=== PATIENT | female | born 1985 | race Caucasian/White ===

== ENCOUNTER → 2018-06-01 | Outpatient (REF) | payer BC ==
[~2018-06-01] MED LIST: QUET50TA21 PO
[2018-06-01 18:18] LABS: PLATELET COUNT, AUTOMATED 192 K/uL (150-450)
== END ==
PROVIDERS: ATTEND Nurse Practitioner Family
DX: G47.00 Insomnia, unspecified (principal)
CPT/HCPCS: 82040; 82247; 82310; 82374; 82435; 82565; 82947; 84075; 84132; 84155; 84295; 84450; 84460; 84520; 85025

== ENCOUNTER 2018-06-02 05:52 | Emergency (ER) | payer BC ==
[2018-06-02 06:04] VITALS: BP 144/102
--- NOTE | 2018-06-02 06:12 | ER Report ---
History and Physical Time Seen By MD: 06:12 Hx. of Stated Complaint: MANIC EPISODE HPI/ROS CHIEF COMPLAINT: manic episode HISTORY OF PRESENT ILLNESS: This is a 32 year old female. She was brought to the ER by her under the guise that he needed to be seen, but in reality, he is worried about her. She is having a manic episode and he was hoping to get her some help. She has been becoming more and more animated every day, and has done this in the past. She has gotten to the point where she will become unresponsive, and has actually taken off and been difficult to find when this happens. He wants us to admit her, but she does not want to be here. She says she is fine, feels great and is looking forward to going to the [facility] in [place] today. She does not feel that she is having any problem and is not interested in staying or taking any medicine. She is not suicidal or homicidal. Allergies: Coded Allergies: No Known Drug Allergies (Unverified , 06/02/18) Home Meds Active Scripts Quetiapine Fumarate (SEROQUEL) 50 Mg Tablet, 50 MG PO BID, #60 TAB 0 Refills Prov:MATTIE RIVAS MD 06/02/18 Reviewed Nurses Notes: Yes Constitutional Vital Sign - Last 24 Hours 06/02/18 06:04 Temp 97.7 Pulse 91 Resp 18 B/P (MAP) 144/102 Pulse Ox 96 O2 Delivery Room Air Physical Exam General: Alert, very animated. Does appear to be hyper active and over talkative. Psych: no SI or HI. She does appear manic, but does not appear to be a danger to herself at this time. Neuro: Alert, and oriented. Medical Decision Making ED Course/Re-evaluation ED Course [place] after interviewing her, that she is manic, but because she is alert and oriented and not suicidal or homicidal, that there is nothing we can do at this time. Offered to start her on Seroquel 50mg bid and she had Hydroxyzine she can use. Her was not happy with us, but at this time there was nothing else we can do, she does not meet criteria for being dangerous to herself or others at this time. Decision to Disposition Date: Jun 02, 2018 Decision to Disposition Time: 06:22 Depart Departure Latest Vital Signs Vital Signs Date Time Temp Pulse Resp B/P (MAP) Pulse Ox O2 Delivery O2 Flow Rate FiO2 06/02/18 06:04 97.7 91 18 144/102 96 Room Air Impression: Primary Impression: Manic bipolar I disorder Condition: Condition Unchanged Disposition: HOME OR SELF-CARE Referrals: DALLAS KEBEDE DO (PCP) New Scripts Quetiapine Fumarate (SEROQUEL) 50 Mg Tablet 50 MG PO BID, #60 TAB 0 Refills Prov: MATTIE RIVAS MD 06/02/18 Patient Instructions: Bipolar Disorder (ED) Additional Instructions: You are having a manic episode and without intervention this will spiral out of control. We recommend following up with a primary care provider or mental health provider for further evaluation. You are always welcome to return to the hospital if you would like us to admit you for treatment. Keep taking the Hydroxyzine 50mg tablets at bedtime prescribed by urgent care. I will provide a prescription for Seroquel 50mg twice a day MATTIE RVIAS MD Jun 02, 2018 06:12
[2018-06-02] MEDS ORDERED: QUET50TA21 PO (06:27)
[2018-06-02] MEDS ORDERED: QUEtiapine FUM 100 MG TAB PO ONE (06:40)
[2018-06-02] MEDS ORDERED: QUEtiapine FUM 25 MG TAB ONE (06:58)
== END 2018-06-02 07:22 | disposition home or self-care (01) ==
LOC: ER 06:19
DX: F30.9 Manic episode, unspecified (principal)
CPT/HCPCS: 99281

== ENCOUNTER 2018-06-02 19:41 | Emergency (ER) | payer BC ==
[2018-06-02 19:50] VITALS: BP 127/94
--- NOTE | 2018-06-02 20:05 | ER Report ---
History and Physical Time Seen By MD: 20:04 HPI/ROS CHIEF COMPLAINT: Sore throat HISTORY OF PRESENT ILLNESS: This is a 32-year-old female. Her earlier today for manic episode. She is much calmer now. She is complaining of sore throat. Pain with swallowing. No fevers or chills. No cough. Denies any runny nose or shortness of breath with this. Allergies: Coded Allergies: No Known Drug Allergies (Unverified , 06/02/18) Home Meds Active Scripts Quetiapine Fumarate (SEROQUEL) 50 Mg Tablet, 50 MG PO BID, #60 TAB 0 Refills Prov:MATTIE RIVAS MD 06/02/18 Unable To Obtain Past Medical: Unable to Obtain/Update Reviewed Nurses Notes: Yes Constitutional Vital Sign - Last 24 Hours 06/02/18 06/02/18 06/02/18 19:49 19:50 19:56 Temp 98.9 Pulse 90 87 Resp 18 B/P (MAP) 127/94 (105) 127/94 Pulse Ox 93 97 O2 Delivery Room Air Physical Exam General Appearance: The patient is alert, has no immediate need for airway protection and no current signs of toxicity. Eyes: Pupils equal and round no injection. ENT: Normal oral mucosa. Moist mucous membranes. Posterior oropharynx is a little red, no exudates or hypertrophy. Tympanic membranes are normal. Neck: Neck is supple and non tender. No lymphadenopathy noted. Respiratory: Chest is non tender, lungs are clear to auscultation. Cardiac: regular rate and rhythm Gastrointestinal: Abdomen is soft and non tender, no masses, bowel sounds normal. Musculoskeletal: Extremities have full range of motion. Skin: No rashes or lesions. DIFFERENTIAL DIAGNOSIS: After history and physical exam differential diagnosis was considered for sore throat, likely viral pharyngitis we'll check strep as well. Medical Decision Making Data Points Laboratory Hematology Test 06/02/18 19:53 Group A Streptococcus Screen Negative (NEGATIVE) Chemistry Test 06/02/18 19:53 Group A Streptococcus Screen Negative (NEGATIVE) ED Course/Re-evaluation ED Course Negative strep. Reviewed findings for viral pharyngitis and associated treatment conservative Decision to Disposition Date: Jun 02, 2018 Decision to Disposition Time: 21:07 Depart Departure Latest Vital Signs Vital Signs Date Time Temp Pulse Resp B/P (MAP) Pulse Ox O2 Delivery O2 Flow Rate FiO2 06/02/18 19:56 87 97 06/02/18 19:50 98.9 18 127/94 Room Air Impression: Primary Impression: Viral pharyngitis Condition: Improved Disposition: HOME OR SELF-CARE Referrals: DALLAS KEBEDE DO (PCP) Patient Instructions: Pharyngitis (ED) Additional Instructions: Your sore throat looks like it is caused by a virus. Rest and increase fluid intake. you can use some sore throat lozenges or sprays as needed. Tylenol or Ibuprofen as needed for pain MATTIE RIVAS MD Jun 02, 2018 20:05
== END 2018-06-02 21:12 | disposition home or self-care (01) ==
LOC: ER 19:53
DX: J02.9 Acute pharyngitis, unspecified (principal)
CPT/HCPCS: 87081; 87880; 99282

== ENCOUNTER 2019-04-17 11:07 | Emergency (ER) | payer BC, OTHER ==
[2019-04-17] MEDS ORDERED: KETAMINE HCL 500 MG/5 ML VIAL IM ONE (11:30)
--- NOTE | 2019-04-17 11:48 | BHS - Psychiatric Evaluation ---
ER - Title 25 MHE Evaluation Title 25 Evaluation Patient Detained By: Physician Referral Source: and POA Date Patient Detained: Apr 17, 2019 Time Patient Detained: 11:50 Date Fpc Expires: Apr 22, 2019 Time Fpc Expires: 11:50 Legal Status: Police Hold: No Legal Status: Residence: [facility] Resident Assessment Data Provided By: Family Member(s) () HPI/ROS: Patient brought in for assessment by who feels that she is having an acute manic episode that began this Monday. Admit due to SI or Attempt: Yes Suicide Plan: Has Plan w/out Access Current Suicide Plan Unknown, but states that she said she "was going to jkill herself last evening"; currently the patient is rambling "I don't know" with or without questioning Alcohol or Drugs Involved: No Is Patient Info Reliable: No Is Collateral Info Reliable: Yes Current Home Psych Meds: Seroquel, but patient is not taking Mental Status Exam General Appearance: Psychomotor Agitation, Bizarre Mannerisms Speech: Rambling, Inappropriate (pressured; repetative) Mood: Hyperthymic Affect: Anxious, Agitated Thought Process: Loose Associations, Flight of Ideas Thought Content: Other (manic) Sensorium: Other Cognition: Other Memory: Other (unable to assess) Insight Judgment: Poor Sleep: Insomnia Hallucinations: Denies (unable to assess due to wanda) Delusions: Denies (unable to assess) Current Risk & History Current Dangerous Risk Assessm: Ubable to Care for Self (immediate and clear danger for future self harm due to inability to care for self) Past Dangerous Risk Assessm: Other (history of prior wanda) Previous Suicide Attempt: No Previous Attempt (however, stated that she was going to shoot herself last night) Previous Psychiatric Illness: Yes (manic episode) Previous Psychiatric Treatment: No Risk Assessment & Disposition Evaluated Risk Assessment: Patient completely unable to care for self and is high risk for future immediate harm Impression: Primary Impression: Wanda Meets Mental Illness Req.: Yes Meets Dangerousness Req.: Yes (unable to care for self) Emergency Fpc to be: Upheld Date of Decision: Apr 17, 2019 Time of Decision: 11:50 Patient is Medically Stable at: Yes Disposition: Inpatient MATTHEW HENDRICKS MD Apr 17, 2019 11:48
[2019-04-17 12:04] LABS: PLATELET COUNT, AUTOMATED 241 K/uL (150-450)
[2019-04-17] MEDS ORDERED: WATER STERILE 10 ML VIAL IM ONLY ONE (12:20)
[2019-04-17] MEDS ORDERED: OLANZapine 10 MG VIAL IM ONLY ONE (12:20)
[2019-04-17] MEDS ORDERED: NS(*) 0.9% 1000 ML BAG 1,000 ML IV ONE (12:25)
--- NOTE | 2019-04-17 12:47 | ER Report ---
History and Physical Time Seen By MD: 12:05 Hx. of Stated Complaint: MANIC FOR 3 DAYS. VERBALIZED SI YESTERDAY HPI/ROS CHIEF COMPLAINT: Acute manic episode HISTORY OF PRESENT ILLNESS: Patient is a 33-year-old female who is brought in by her but escorted by the Police Department for safety reasons. Patient states unable to give any useful history due to rambling thought process and only answers questions with "I don't know" but was still also say "I don't know" without questioning. According to the who is very supportive she had a similar episode although less intense back in May 2018 and was be able to be managed as an outpatient on Seroquel patient is no longer willing to take her medicines she's been off her Seroquel since Monday. She has become increasingly more manic. Patient's states that she left the house and was unable to be found for a period of a few hours and then returned on her own. The is very concerned about her safety, feels that she is unable to care for herself. They have 2 children aged 8 and 12 and he is concerned about their safety around her mother in this manic state. No history of alcohol or drug abuse, there is no prior history of suicide attempt although the stated that the patient said "she was going to kill herself with a gun last evening". The is been feels that he is unable to care for her immediate needs and feels that she is in immediate danger and I was able to bring her to the emergency department. I was unable to get any useful information from the patient due to her acutely hypermanic state. REVIEW OF SYSTEMS: Unable to obtain due to acute sena Allergies: Coded Allergies: No Known Drug Allergies (Unverified , 06/02/18) Home Meds Discontinued Scripts Quetiapine Fumarate (SEROQUEL) 50 Mg Tablet, 50 MG PO BID, #60 TAB 0 Refills Prov:MATTIE RIVAS MD 06/02/18 Past Medical/Surgical History Acute sena in the past. Constitutional Vital Sign - Last 24 Hours 04/17/19 11:16 Temp 98.2 Pulse 112 Resp 20 B/P (MAP) 116/94 Pulse Ox 95 O2 Delivery Room Air Physical Exam General Appearance: The patient is alert, has no immediate need for airway protection and no signs of toxicity. Patient with acute psychomotor agitation Eyes: Pupils equal and round no pallor or injection. Unable to assess extraocular movements or muscles ENT, Mouth: Mucous membranes are moist. Respiratory: There are no retractions, lungs are clear to auscultation. Cardiovascular: Regular rate and rhythm. [ ] Gastrointestinal: Abdomen is soft and non tender, no masses, bowel sounds normal. Neurological: Moving all 4 extremities but not following commands Skin: Warm and dry, no rashes. Musculoskeletal: Neck is supple non tender. Extremities are nontender, nonswollen and have full range of motion. Psychiatric: Patient with confabulations, pressured speech and repetitive speech stating "I don't know" I don't know" patient repeats this phrase over no other to either asked questions or out without any questioning. Unable to determine if patient is responding to any internal stimuli. Patient is somewhat aware of her surroundings it appears she does know that she is in the hospital because she states in addition "I don't know"; she states that she "does not want sedation" process seems extremely tangential experiencing psychomotor agitation. We'll to determine if patient is suicidal or homicidal [ ] Medical Decision Making Data Points Result Diagram: 04/17/19 1148 04/17/19 1148 Laboratory Hematology Test 04/17/19 11:48 White Blood Count 11.2 k/uL (4.5-11.0) H Red Blood Count 4.85 M/uL (4.17-5.56) Hemoglobin 14.4 g/dL (12.0-16.0) Hematocrit 42.2 % (34.0-47.0) Mean Corpuscular Volume 87.0 fL (80.0-96.0) Mean Corpuscular Hemoglobin 29.7 pg (26.0-33.0) Mean Corpuscular Hemoglobin Concent 34.1 g/dL (32.0-36.0) Red Cell Distribution Width 13.2 % (11.5-14.5) Platelet Count 241 K/uL (150-450) Mean Platelet Volume 9.9 fL (7.2-11.1) Neutrophils (%) (Auto) 69.7 % (39.4-72.5) Lymphocytes (%) (Auto) 21.4 % (17.6-49.6) Monocytes (%) (Auto) 7.7 % (4.1-12.4) Eosinophils (%) (Auto) 0.6 % (0.4-6.7) Basophils (%) (Auto) 0.6 % (0.3-1.4) Nucleated RBC Relative Count (auto) 0.0 /100WBC Neutrophils # (Auto) 7.8 K/uL (2.0-7.4) H Lymphocytes # (Auto) 2.4 K/uL (1.3-3.6) Monocytes # (Auto) 0.9 K/uL (0.3-1.0) Eosinophils # (Auto) 0.1 K/uL (0.0-0.5) Basophils # (Auto) 0.1 K/uL (0.0-0.1) Nucleated RBC Absolute Count (auto) 0.00 K/uL Chemistry Test 04/17/19 11:48 Sodium Level 138 mmol/L (137-145) Potassium Level 3.9 mmol/L (3.5-5.0) Chloride Level 105 mmol/L (98-107) Carbon Dioxide Level 21 mmol/L (22-31) Blood Urea Nitrogen 12 mg/dl (7-18) Creatinine 1.10 mg/dl (0.52-1.04) Glomerular Filtration Rate Calc 56.9 Random Glucose 106 mg/dl (75-110) Calcium Level 9.7 mg/dl (8.4-10.2) Magnesium Level 2.0 mg/dl (1.7-2.2) Total Bilirubin 0.6 mg/dl (0.2-1.3) Aspartate Amino Transf (AST/SGOT) 51 U/L (0-35) Alanine Aminotransferase (ALT/SGPT) 42 U/L (0-56) Alkaline Phosphatase 53 U/L (0-126) Total Protein 8.0 g/dl (6.3-8.2) Albumin 4.9 g/dl (3.5-5.0) Thyroid Stimulating Hormone (TSH) 1.47 uIU/ml (0.46-4.68) Toxicology Test 04/17/19 11:48 04/17/19 15:23 Salicylates Level < 10 mg/L Salicylate Last Dose Date unk Acetaminophen Level < 10 ug/ml Serum Alcohol < 10 mg/dl Urine Opiates Screen Negative Urine Barbiturates Screen Negative Ur Tricyclic Antidepressants Screen Negative Urine Phencyclidine Screen Negative Urine Amphetamines Screen Negative Urine Benzodiazepines Screen Negative Urine Cocaine Screen Negative Urine Cannabinoids Screen Negative Urinalysis Test 04/17/19 15:23 Urine HCG, Qualitative Negative (NEGATIVE) EKG/Imaging EKG Interpretation EKG shows normal sinus rhythm with a normal QTC Monitor Interpretation: Normal Sinus Rhythm Imaging FACILITY: [facility] [place] PATIENT NAME: Anna Cooper : 1985 MR: [id number] V: [id number] EXAM DATE: ORDERING PHYSICIAN: MATTHEW HENDRICKS TECHNOLOGIST: [facility] Patient: Anna Cooper : 1985 Visit/Account:[id number] Date of Sevice: 04/17/2019 EXAMINATION: Head CT without intravenous contrast HISTORY: Altered mental status TECHNIQUE: Contiguous axial images were obtained from the skull base to the vertex without intravenous contrast. Sagittal and coronal reformatted images are also submitted. Dose Lowering Technique One of the following dose optimization techniques was utilized in the performance of this exam: Automated exposure control; adjustment of the mA and/or kV according to the patient's size; or use of an iterative reconstruction technique. Specific details can be referenced in the facility's radiology CT exam operational policy. COMPARISON: None. FINDINGS: Brain volume: Normal. Ventricles: Normal. Acute ischemic changes: None. Hemorrhage: None. Masses / edema: There is subtle decreased attenuation in the left temporal lobe however this is more likely related to artifact from the adjacent petrous ridge. By history the patient was altered mental status is related to a manic episode. There is no associated mass effect Ghosh-white: Negative. White matter: Normal. Vessels: Negative. Extra-axial: Negative. Calvarium / scalp: Negative. Skull base / visualized face: Negative. Visualized sinuses / orbits: Negative. IMPRESSION: Subtle decreased attenuation left temporal lobe is likely artifactual in nature as described above. By history patient's altered mental status is related to an acute manic episode. There is no associated mass effect. If herpes encephalitis is of clinical concern MR is recommended Report Dictated By: Megha Lima MD at 04/17/2019 2:56 PM Report E-Signed By: Megha Lima MD at 04/17/2019 3:02 PM WSN:[email or web address] ED Course/Re-evaluation ED Course After interviewing and examining the patient as well as speaking with the patient's who is power of civil litigation attorney is clear to me that the patient is not able to care for herself and is an immediate threat to herself for possible self harm as she is unable to make rational decisions. I will proceed with a title 25 mental health hold and have another provider evaluate the patient to see if it can be upheld. I did speak with the patient's who again is power of civil litigation attorney explained the right the patient to him. No questions or concerns at time of mental health detainment Decision to Disposition Date: Apr 17, 2019 Decision to Disposition Time: 15:28 Depart Departure Latest Vital Signs Vital Signs Date Time Temp Pulse Resp B/P (MAP) Pulse Ox O2 Delivery O2 Flow Rate FiO2 04/17/19 11:16 98.2 112 20 116/94 95 Room Air Impression: Primary Impression: Sena Condition: Improved (guarded condition; potential for agreesive mood) Disposition: XFER TO [facility] (TO Dr Denson) Referrals: DALLAS KEBEDE DO (PCP) New Scripts No Active Prescriptions or Reported Meds MATTHEW HENDRICKS MD Apr 17, 2019 12:47
[2019-04-17] MEDS ORDERED: diphenhydrAMINE 50 MG/ML VIAL IM ONE (13:05)
[2019-04-17] MEDS ORDERED: LORazepam 2 MG/ML VIAL IM ONE (13:05)
--- NOTE | 2019-04-17 14:19 | EKG ---
FACILITY: [facility] [place] PATIENT NAME: ESMER RIVERA : [id number] MR: [id number] V: [id number] EXAM DATE: ORDERING PHYSICIAN: MATTHEW HENDRICKS TECHNOLOGIST: Test Reason : Blood Pressure : / mmHG Vent. Rate : 073 BPM Atrial Rate : 073 BPM P-R Int : 148 ms QRS Dur : 082 ms QT Int : 394 ms P-R-T Axes : 065 066 031 degrees QTc Int : 434 ms Sinus rhythm Poor R wave progression anterior leads No acute appearing findings No previous ECGs available Confirmed by ELKE HOFFMAN ([id number]) on 04/17/2019 3:42:06 PM Referred By: Confirmed By:ELKE HOFFMAN
--- NOTE | 2019-04-17 15:11 | RADIOLOGY IMAGING REPORT ---
FACILITY: [facility] PATIENT NAME: Anna Cooper : 1985 MR: [id number] V: [id number] EXAM DATE: ORDERING PHYSICIAN: MATTHEW HENDRICKS TECHNOLOGIST: Location: [facility] [place] Patient: Anna Cooper : 1985 Visit/Account:[id number] Date of Sevice: 04/17/2019 EXAMINATION: Head CT without intravenous contrast HISTORY: Altered mental status TECHNIQUE: Contiguous axial images were obtained from the skull base to the vertex without intraven ous contrast. Sagittal and coronal reformatted images are also submitted. Dose Lowering Technique One of the following dose optimization techniques was utilized in the performance of this exam: Autom ated exposure control; adjustment of the mA and/or kV according to the patient's size; or use of an i terative reconstruction technique. Specific details can be referenced in the facility's radiology C T exam operational policy. COMPARISON: None. FINDINGS: Brain volume: Normal. Ventricles: Normal. Acute ischemic changes: None. Hemorrhage: None. Masses / edema: There is subtle decreased attenuation in the left temporal lobe however this is more likely related to artifact from the adjacent petrous ridge. By history the patient was altered ment al status is related to a manic episode. There is no associated mass effect Ghosh-white: Negative. White matter: Normal. Vessels: Negative. Extra-axial: Negative. Calvarium / scalp: Negative. Skull base / visualized face: Negative. Visualized sinuses / orbits: Negative. IMPRESSION: Subtle decreased attenuation left temporal lobe is likely artifactual in nature as described above. By history patient's altered mental status is related to an acute manic episode. There is no associa harsh mass effect. If herpes encephalitis is of clinical concern MR is recommended Report Dictated By: Megha Lima MD at 04/17/2019 2:56 PM Report E-Signed By: Megha Lima MD at 04/17/2019 3:02 PM WSN:CHIN
--- NOTE | 2019-04-17 15:16 | BHS - Psychiatric Evaluation ---
ER - Title 25 MHE Evaluation Title 25 Evaluation Patient Detained By: Physician (Dr. Nagy) Referral Source: Professional: ER physicians Dr. Minor and Dr. Nagy Date Patient Detained: Apr 17, 2019 Time Patient Detained: 11:50 Date Longterm Expires: Apr 22, 2019 Time Longterm Expires: 11:50 Legal Status: Police Hold: No Legal Status: Residence: [facility] Resident, State Resident Assessment Data Provided By: Family Member(s) (tried to speak with her in the ER but her had left and was not contactable), Other Source (ER Physicians Dr. Minor and Dr. Nagy) HPI/ROS: Per Dr. Nagy, "Exact suicide plan is unknown, but states that she said she "was going to kill herself last evening"; currently the patient is rambling "I don't know" with or without questioning. Admit due to SI or Attempt: Yes Suicide Plan: Has Plan w/out Access Current Suicide Plan Patient is not able to converse, she is speaking, but it is not intelligible. Also she is somnolent Alcohol or Drugs Involved: No Is Patient Info Reliable: No Is Collateral Info Reliable: Yes Current Home Psych Meds: Seroquel, but patient is not taking Mental Status Exam General Appearance: Psychomotor Agitation, Bizarre Mannerisms Speech: Rambling, Other (Patient is not speaking in a way that this interviewer can understand her.) Mood: Other (Unable to determine at this time) Affect: Other (Unable to determine at this time) Thought Process: Other (Unable to determine at this time) Thought Content: Suicidal Ideation (Patient reported to physician that patient stated she was going to kill herself.) Cognition: No Alert & Oriented-Person, No Alert & Oriented-Place, No Alert & Oriented-Time, No Mulle-Kxapulvs-Ygjfpdsko Memory: Other (Unable to determine at this time) Insight Judgment: Poor Sleep: Hypersomnia Current Risk & History Current Dangerous Risk Assessm: Ubable to Care for Self Past Dangerous Risk Assessm: Other (Patient is not oriented to person, place or situation.) Previous Suicide Attempt: No Previous Attempt Previous Psychiatric Illness: Yes (History of wanda) Previous Psychiatric Treatment: Yes (History of wanda) Risk Assessment & Disposition Evaluated Risk Assessment: Patient is at high risk to herself because he cannot care for herself. her last intelligble comments, per her were related to statements that she was going to kill herself. She is simultaneously agitated and somnolent. She required some sedation to calm her. Patient requires a safe and stabilizing environment. Impression: Primary Impression: Wanda Additional Impression: Manic bipolar I disorder Meets Mental Illness Req.: Yes Meets Dangerousness Req.: Yes Emergency Longterm to be: Upheld Decision Comment: Patient is at high risk to herself because he cannot care for herself. her last intelligble comments, per her were related to statements that she was going to kill herself. She is simultaneously agitated and somnolent. She required some sedation to calm her. Patient requires a safe and stabilizing environment. Date of Decision: Apr 17, 2019 Time of Decision: 15:11 Patient is Medically Stable at: Yes Disposition: Transfer (Currently still in the ER) Problem Qualifiers EMERITA SCHAFFER LPC Apr 17, 2019 15:16
[2019-04-17] MEDS ORDERED: HALOPERIDOL LACT 5 MG/ML VIAL IM ONE (15:40)
[2019-04-17 17:30] VITALS: BP 98/59
== END 2019-04-17 18:21 ==
LOC: ER 11:59
DX: F30.9 Manic episode, unspecified (principal); R41.82 Altered mental status, unspecified
CPT/HCPCS: 70450; 80305; 80320; 80329; 81025; 83735; 84443; 85025; 93005; 96360; 96372; 99284; A4216; A4353; J1200; J1630; J2060; J3490; J7030; 82040; 82247; 82310; 82374; 82435; 82565; 82947; 84075; 84132; 84155; 84295; 84450; 84460; 84520

== ENCOUNTER 2019-04-17 17:15 | Inpatient (IN) | payer BC, OTHER ==
[~2019-04-17] VITALS: Ht 168.9 cm; Wt 71.7 kg
[2019-04-17] MEDS ORDERED: WATER STERILE 10 ML VIAL IM ONLY PRN (17:50)
[2019-04-17] MEDS ORDERED: MAG HYD/AL HYD/SIMETH 30ML UDC PO PRN (17:50)
[2019-04-17] MEDS ORDERED: OLANZapine 10 MG VIAL IM ONLY PRN ×2 (17:50)
[2019-04-17] MEDS ORDERED: diphenhydrAMINE 50 MG/ML VIAL IVP PRN (17:50)
[2019-04-17 18:18] VITALS: BP 119/64
[2019-04-17] MEDS ORDERED: LORazepam 2 MG/ML VIAL IVP PRN (18:50)
--- NOTE | 2019-04-17 19:04 | EKG ---
FACILITY: [facility] [place] PATIENT NAME: ESMER RIVERA : [id number] MR: [id number] V: [id number] EXAM DATE: ORDERING PHYSICIAN: ROMAINE GARCIA TECHNOLOGIST: MICHELLE Test Reason : ANTIPSYCHOTIC USE Blood Pressure : / mmHG Vent. Rate : 082 BPM Atrial Rate : 082 BPM P-R Int : 144 ms QRS Dur : 076 ms QT Int : 394 ms P-R-T Axes : 084 096 079 degrees QTc Int : 460 ms Sinus rhythm Possible biatrial enlargement Borderline right axis Decreased R wave progression anterior leads Abnormal ECG Confirmed by ELKE HOFFMAN ([id number]) on 04/18/2019 6:26:41 AM Referred By: Confirmed By:ELKE HOFFMAN
--- NOTE | 2019-04-17 22:04 | EKG ---
FACILITY: [facility] PATIENT NAME: ESMER RIVERA : [id number] MR: [id number] V: [id number] EXAM DATE: ORDERING PHYSICIAN: ROMAINE GARCIA TECHNOLOGIST: MICHELLE Test Reason : HX OF INCREASE QTC Blood Pressure : / mmHG Vent. Rate : 092 BPM Atrial Rate : 092 BPM P-R Int : 142 ms QRS Dur : 078 ms QT Int : 386 ms P-R-T Axes : 077 080 059 degrees QTc Int : 477 ms Sinus rhythm Possible biatrial enlargement Decreased R wave progression anteriorly Nonspecific ST-T findings precordial leads Abnormal ECG Confirmed by ELKE HOFFMAN ([id number]) on 04/18/2019 6:28:56 AM Referred By: Confirmed By:ELKE HOFFMAN
[2019-04-17 23:34] VITALS: BP 113/58
[2019-04-18 04:00] VITALS: BP 110/61
[2019-04-18] MEDS: MULTIVITAMINS TAB PO SCH (08:19)
[2019-04-18 08:35] VITALS: BP 122/67
[2019-04-18] MEDS: lamoTRIgine 25 MG TAB PO SCH (10:49)
--- NOTE | 2019-04-18 11:30 | EKG ---
FACILITY: [facility] PATIENT NAME: ESMER RIVERA : [id number] MR: [id number] V: [id number] EXAM DATE: ORDERING PHYSICIAN: ROMAINE GARCIA TECHNOLOGIST: [employer] Reason : Blood Pressure : / mmHG Vent. Rate : 079 BPM Atrial Rate : 079 BPM P-R Int : 150 ms QRS Dur : 084 ms QT Int : 390 ms P-R-T Axes : 075 081 057 degrees QTc Int : 447 ms Normal sinus rhythm Cannot rule out Anterior infarct , age undetermined No ST-T abnormalities Compared to previous: Precordial lead ST-T abnormalities has resolved Confirmed by SAVANNAH SPEARS ([id number]) on 04/19/2019 1:36:39 PM Referred By: Confirmed By:SAVANNAH SPEARS
--- NOTE | 2019-04-18 12:49 | SCHAAF H&P ---
DATE OF ADMISSION: April 17, 2019 Patient was seen at approximately 0930 hours on the a.m. of April 18, 2019 for note concerning this dictation. ATTENDING PHYSICIAN Du Denson MD PRESENTING PROBLEM/CHIEF COMPLAINT "I believe I have flashbacks." HISTORY OF PRESENT ILLNESS This is pleasant at time of initial interview 33-year-old female who on further evaluation of chief complaint is unable to give a history of any PTSD symptoms or any history of abuse. Patient slowly and vaguely admitting that she probably has bipolar disorder and she agrees that she was probably in a manic state upon admission on April 17, 2019 to the emergency room. Patient notably requiring sedation including low-dose Haldol, Zyprexa, Ativan, Benadryl and Ketamine prior to admission to the Behavioral Health Unit, where patient seemed to sleep comfortably throughout the night. Patient vague overall as to her history regarding her likely bipolar illness, referring many questions to her not present in the room. Patient's was contacted later, however, and patient's stated that his of going on 15 years now has not had a manic episode for about 7 years and was last hospitalized in [place], [place]. Patient has been off medications, according to her , since that time. Patient's reported that he recently started to see manic behavior return and that he tried to dose her with some low-dose Seroquel he had left over from previous hospitalizations or an emergency room visit in May 2018, but it was to no avail. Patient's also reported that patient has a history of depression symptoms that seemingly will outweigh the manic states in frequency or duration. Patient agreed to this. Patient denying any depression now. Patient agrees that she was, indeed, "behind on my sleep". Patient's reported that she had no sleep in probably the last two days. Patient herself reporting not sleeping well for quite some time. Patient currently denying any psychosis, although at time of admission patient likely met criteria for manic symptoms with psychotic features. Patient denying any PTSD, panic attacks, phobias. Patient reports some anorexia and bulimia type symptoms, referring to "both" as a teenager but they are long resolved. Patient reports some brief self-harm behaviors as a teenager as well but no engaging in that now. Patient denies OCD or somatization type symptoms. Patient not able to identify any specific stressors in her life right now. MENTAL HEALTH HISTORY Patient's reports this is likely her fourth hospitalization here as she has been in [place], [place] twice, the last time seven years ago, and she had been in [place] in the hospital at one time. Patient not currently receiving any outpatient healthcare, according to the patient, for mental health or any physical symptoms and not on any medication. She may have recently tried low-dose Seroquel in an effort to stop manic symptoms. Patient herself reports no suicide attempts. She has had thoughts of it in the past. FAMILY PSYCHIATRIC HISTORY Patient reports an uncle on the father's side named Keo who suffered from likely bipolar disorder and possibly schizophrenia. She reports no suicides in the family and she has a sister who may suffer from obsessive compulsive disorder. PAST MEDICAL HISTORY Significant for polycystic kidney disease. Patient reports an episode of thrombocytopenia which resolved and may have been related to a viral infection in the past. She had tonsillectomy in the past as well. ALLERGIES She denies any allergies. CURRENT MEDICATIONS None. SOCIAL HISTORY The patient was born in [place] and raised there. She reports a good childhood overall. Her parents were at the time of her and remain together. They are still alive. She is the youngest of three siblings. She has one brother and two sisters. She graduated high school, did some college work. She has never been in the . She has been since 2003 with two children, ages 10 and 12. She reports a good relationship with her . She lives here in the [facility]. She is not working outside the home. She last worked about a year ago. LEGAL HISTORY Significant for a misdemeanor as a child that may have involved shoplifting. No legal charges pending now and no history of felony. SUBSTANCE ABUSE HISTORY Patient reports she has smoked some cigarettes in the past. She uses little alcohol in her life and denies any other significant drug use history. PHYSICAL EXAMINATION Please see emergency room note. Notable for a 33-year old female who appears to be suffering a bout of sena associated with longstanding bipolar disorder, requiring chemical restraint. Vital signs at the time of admission: Temperature 98.2, pulse 112, respiratory rate 20, blood pressure 116/94 and pulse oximetry 95]% on room air. LABORATORY DATA CBC notable for white blood cell slightly elevated at 11.2. This likely represents a stress reaction. Creatinine notably elevated slightly at 1.10 with BUN of 12. AST elevated slightly at 51, TSH 1.47. Urine screen negative and urine toxicology screen negative with a nondetectable serum alcohol level. MENTAL STATUS EXAMINATION GENERAL APPEARANCE, BEHAVIOR AND ATTITUDE: At time of initial interview on [facility] [place], this is a cooperative, pleasant, 33-year old female demonstrating some confusion regarding events leading up to her admission. Patient requiring chemical restraint, overall alert and oriented. No periods of tearfulness and interacting well. SPEECH: Largely within normal limits. Regular rate, rhythm, volume and tone. MOOD: Described as okay and realizing that she was recently in a grandiose mood. AFFECT: Minimally constricted and mood-congruent. THOUGHT PROCESSES: Appear goal-directed, logical. Patient indicating that although she does not like to take medication she would at this time. No gross loose associations or flight of ideas were detected after patient having slept secondary to chemical restraint. THOUGHT CONTENT: Free of any obvious auditory or visual hallucinations. Patient denying no ideas of reference, thought broadcastings, delusions, obsessions or compulsions. Patient adamantly denying suicidal or homicidal ideations. SENSORIUM: Clear. COGNITION: Alert and oriented to person, place, time and mostly to situation. MEMORY: Immediate, recent and remote estimated intact. INTELLIGENCE: Average, based on interview. INSIGHT AND JUDGMENT: Considered limited due to manic symptomatology upon admission. However, quickly recovering after a good night's rest. ASSESSMENT This is a 33-year-old female with longstanding bipolar disease and seems overall to do quite well for many years in between hospitalizations. Patient and her both agree that she also suffers from periods of significant depression at times. Would look into Divide at this time to help with mood stability and use antidepressant effects. However, patient has history of polycystic kidney disease and, therefore, Divide will not be used. We will consider Lamictal. Patient is open to medications at this time and we will also consider low-dose Seroquel to continue to promote sleep as Lamictal gets titrated and further collateral information to be required. DIAGNOSES (PER DSM-5) 1. Bipolar 1 disorder. 2. Recent manic severe with psychotic features. 3. History of polycystic disease. 4. Supportive family. PLAN 1. Admit to the unit. 2. Necessary precautions will be implemented. 3. The patient will participate in individual and group therapy. 4. Medications will be adjusted and titrated accordingly. 5. Collateral information to be obtained as necessary. 6. Estimated length of stay 2 to 3 days. MTDD
[2019-04-18 16:25] VITALS: BP 114/73
[2019-04-18 20:25] VITALS: BP 118/81
[2019-04-18] MEDS ORDERED: QUEtiapine FUM 100 MG TAB PO SCH (21:00)
[2019-04-19 06:06] VITALS: BP 99/78
[2019-04-19] MEDS: MULTIVITAMINS TAB PO SCH (08:00)
[2019-04-19] MEDS: lamoTRIgine 25 MG TAB PO SCH (08:00)
[2019-04-19] MEDS ORDERED: QUET100T29 PO (09:44)
[2019-04-19] MEDS ORDERED: LAMO25TA64 PO (09:46)
[2019-04-19] MEDS ORDERED: MULT-859 PO (09:53)
[2019-04-19 11:18] VITALS: BP 120/60
--- NOTE | 2019-04-20 07:50 | SCHAAF DISCHARGE ---
DATE OF ADMISSION: April 17, 2019 DATE OF DISCHARGE: April 19, 2019 Patient was seen at approximately 0920 hours on the a.m. of April 19, 2019 for note concerning this dictation. ATTENDING PHYSICIAN Du Denson MD FINAL DIAGNOSES Bipolar 1 disorder, recent manic severe psychotic features. Patient having very supportive family relationship with . REASON FOR ADMISSION This is a pleasant 33-year-old female who has longstanding bipolar 1 disorder with relatively infrequent hospitalizations through the years. Patient maintains long stretches of time in between hospitalizations while not on any medications. Patient demonstrated some reluctance to take medications for illness while on the unit after patient presenting in a state of severe manic bipolar illness while off medication. Patient initially seen in the emergency room, where she was chemically restrained. Patient then sedated, brought to Behavioral Health Unit. Patient noted to have slept comfortably throughout the night, monitored closely. Patient awoke the next day to initial interview on Behavioral Health Unit. Patient already making much progress in resolution of sena. Patient was open to information about bipolar disorder. Patient was very cooperative and pleasant on the Unit, took an active role in her care. Patient was started on low-dose Seroquel as well as Lamictal to prevent recurrence of manic symptoms and when Lamictal could be titrated up to effective dose prevent further incidences of bipolar disease. Patient exhibiting no suicidal or parasuicidal behaviors. No aggression towards staff on the Unit, interacting well with her and patient was discharged to home. PHYSICAL EXAMINATION Please see emergency room note. Notable for agitated manic 33-year old female requiring chemical restraint. Vital signs at the time of admission: Temperature 98.2, pulse 112, respiratory rate 20, blood pressure 116/94 and pulse oximetry 95% on room air. Vital signs at the time of discharge: Temperature 98.4, pulse 94, respiratory rate 15, blood pressure 99/78 and pulse oximetry 96% on room air. LABORATORY DATA CBC upon arrival indicated WBC slightly elevated at 11.2. Otherwise, unremarkable. Chemistry panel notable for slight elevation in AST of 51 with creatinine of 1.10. TSH 1.47. screen was negative. Serum alcohol level undetected and no illicit substances on board. MENTAL STATUS EXAMINATION GENERAL APPEARANCE, BEHAVIOR AND ATTITUDE: This is a polite, cooperative 33-year-old female interacting well with this provider, other treatment team, staff and her . No psychomotor agitation noted. Patient making good eye contact. No periods of tearfulness. No bizarre mannerisms or tics. SPEECH: Considered baseline. Regular rate, rhythm, volume and tone. MOOD: Described as good. AFFECT: Full at times and mood-congruent. THOUGHT PROCESSES: Goal-directed and fully logical. No longer having flight of ideas or loose associations. THOUGHT CONTENT: Free of auditory or visual hallucinations, ideas of reference, thought broadcastings, delusions, obsessions or compulsions. Patient adamantly denying suicidal or homicidal ideation. SENSORIUM: Clear. COGNITION: Alert and oriented to person, place, time and situation. MEMORY: Immediate, recent and remote estimated intact. INTELLIGENCE: Average, based on interview. INSIGHT AND JUDGMENT: Considered grossly intact in the absence of manic symptoms. Patient indicated a clear understanding of the need for medication and how to take them. RESULTS OF TESTING Imaging: None. Laboratory data: See above. CONSULTATIONS None. TREATMENT Patient received medications, participated in individual and group therapy. HOSPITAL COURSE Patient was initially chemically restrained in the emergency department before arrival on Behavioral Health Unit, where patient slept through the night. Patient awoke and manic symptoms had largely resolved. Patient interacted well on the Unit. On the following night, patient was given Seroquel at low dose, 100 mg. Patient again slept well throughout the night with no return of manic symptoms. CONDITION OF PATIENT ON DISCHARGE Stable. Considered a minimal risk to herself or others while on medication. DISPOSITION The patient was discharged to home in the care of her . She will have followup with Tyesha Joel APRN, and RAPHAEL Gabriel at [facility]. Discharge medications included an upward titration of Lamictal 25 mg for the first two weeks daily and then 50 mg a day for two weeks followed by 100 mg a day and patient would continue with this dose until seen by outpatient provider. The patient would also take Seroquel 100 mg to 300 mg p.o. q.h.s. depending on degree of any manic symptoms. Patient would stay in contact with this provider for further assistance in dosing. It is worthy of note that patient was considered to be a candidate for treatment with [place]. However, patient has a history of polycystic kidney disease. Crisis Line was given should symptoms return and patient would be vigilant of any rash during the upward titration of Lamictal. Risks, benefits of alternatives of above discharge plan were discussed. Informed consent was given to proceed with above discharge plan by this competent patient and patient's present at time of discharge. [place]
== END 2019-04-19 13:10 | disposition home or self-care (01) | DRG 885 ==
LOC: BHS 17:15
PROVIDERS: ADMIT Psychiatry & Neurology Psychiatry; ATTEND Psychiatry & Neurology Psychiatry
DX: F31.5 Bipolar disorder, current episode depressed, severe, with psychotic features (principal); E28.2 Polycystic ovarian syndrome; Z87.891 Personal history of nicotine dependence
CPT/HCPCS: 93005